=== PATIENT | female | born 1995 | race Caucasian/White ===

== ENCOUNTER 2017-03-15 11:51 | Emergency (ER) | payer SELFPAY ==
[2017-03-15 18:17] LABS: Bilirubin,Urine NEG (Negative); Blood,Urine LG (Negative); Ketones,Urine NEG (Negative); Leukocyte Esterase,Urine TR (Negative); Mucus,Urine 2+ /HPF; Nitrite,Urine NEG (Negative); Protein,Urine <15 mg/dL mg/dL (Negative); Urobilinogen,Urine < 2.0 mg/dL (<2.0)
--- NOTE | 2017-03-15 18:25 | Emergency Department Report ---
ED Female HPI - General Chief complaint: Urogenital-Female Stated complaint: POSS BV Source: patient Mode of arrival: Ambulatory Limitations: No Limitations - History of Present Illness Initial comments: 22 y/o F presents with abdominal cramps, fishy vaginal odor, mix of creamy and cottage cheese vaginal discharge for the past 1 week. LMP- currently on it. No hx of STD per patient. Pt admits to a hx of frequency UTI and BV in the past. Pt has been taking OTC azo with mild relief of the symptoms. Pt denies any vomiting, has been eating okay, no chest pain, SOB, fever, chills, or low back pain reported. Pt admits to more suprapubic pain at this time. MD Complaint: vaginal discharge, pelvic pain -: week(s) (one week) Radiation: non-radiating, other (more at the suprapubic region) Severity: moderate Severity scale (0 -10): 8 Quality: cramping Consistency: constant Improves with: other (AZO) Worsens with: none Are you Now?: No Last Menstrual Period: 03/12/17 EDC: 12/17/17 Associated Symptoms: vaginal discharge, abdominal pain, nausea/vomiting. denies : vaginal bleeding, fever/chills, headaches, loss of appetite, dysuria, hematuria - Related Data Sexually active: Yes Previous Rx's Medication Instructions Recorded Last Taken Type Nitrofurantoin Wirt/M-Cryst 100 mg PO Q12HR #10 capsule 03/15/17 Unknown Rx [Macrobid CAP] Phenazopyridine [Pyridium] 100 mg PO DAILY #12 tablet 03/15/17 Unknown Rx metroNIDAZOLE [Flagyl] 500 mg PO Q12HR #14 tab 03/15/17 Unknown Rx Allergies Allergy/AdvReac Type Severity Reaction Status Date / Time No Known Allergies Allergy Unverified 03/15/17 12:28 ED Review of Systems ROS: Stated complaint: POSS BV Other details as noted in HPI Constitutional: denies: chills, fever Eyes: denies: eye pain, eye discharge, vision change ENT: denies: ear pain, throat pain Respiratory: denies: cough, shortness of breath, wheezing Cardiovascular: denies: chest pain, palpitations Endocrine: no symptoms reported Gastrointestinal: abdominal pain, nausea Genitourinary: discharge, other (denies any frequency/urgency or urination but states that she has been taking AZO) Musculoskeletal: denies: back pain, joint swelling, arthralgia Skin: denies: rash, lesions Neurological: denies: headache, weakness, paresthesias Psychiatric: denies: anxiety, depression Hematological/Lymphatic: denies: easy bleeding, easy bruising ED Past Medical Hx - Past Medical History Previous Medical History?: No - Surgical History Past Surgical History?: No - Social History Smoking Status: Never Smoker Substance Use Type: None - Medications Home Medications: Home Medications Medication Instructions Recorded Confirmed Last Taken Type Nitrofurantoin Wirt/M-Cryst 100 mg PO Q12HR #10 capsule 03/15/17 Unknown Rx [Macrobid CAP] Phenazopyridine [Pyridium] 100 mg PO DAILY #12 tablet 03/15/17 Unknown Rx metroNIDAZOLE [Flagyl] 500 mg PO Q12HR #14 tab 03/15/17 Unknown Rx ED Physical Exam - General Limitations: No Limitations General appearance: alert - Head Head exam: Present: atraumatic, normocephalic - Eye Eye exam: Present: normal appearance - ENT ENT exam: Present: normal exam - Neck Neck exam: Present: normal inspection - GI/Abdominal GI/Abdominal exam: Present: soft, tenderness (more on the suprapubic region), normal bowel sounds - Speculum exam: Present: vaginal bleeding, other (as the patient was on her menstrual cycle there was mild amount of blood noted in the cervix/vagina area) Bi-manual exam: Present: normal bi-manual exam, other (no cervical motion tenderness---there was a plater production in the room with this examination) - Extremities Exam Extremities exam: Present: normal inspection - Back Exam Back exam: Present: normal inspection, full ROM, other (no LBP, no CVAT bilaterally) - Neurological Exam Neurological exam: Present: alert, oriented X3 - Psychiatric Psychiatric exam: Present: normal affect, normal mood - Skin Skin exam: Present: warm, dry, intact, normal color. Absent: rash ED Course Vital Signs 03/15/17 03/15/17 12:25 20:00 Temperature 97.9 F Pulse Rate 75 67 Respiratory 16 18 Rate Blood Pressure 127/78 Blood Pressure 114/64 [Left] O2 Sat by Pulse 99 100 Oximetry ED Medical Decision Making - Medical Decision Making Pt was complaining of foul vaginal odor and discharge. Pt had a hx of frequent UTI and BV. Wet prep, gc/chlamydia, and UA were obtained today. Pt was positive for BV and acute cystitis. Urine culture was sent out. Pt was treated with flagyl for the BV and macrobid with pyridium for the UTI. Pt was discharged in stable condition, alert and oriented, and in no acute resp distress. Follow-up referrals provided for OBGYN and PCP. Critical care attestation.: If time is entered above; I have spent that time in minutes in the direct care of this critically ill patient, excluding procedure time. ED Disposition Clinical Impression: Cystitis, Bacterial vaginosis Disposition: TO HOME OR SELFCARE Is pt being admited?: No Does the pt Need Aspirin: No Condition: Stable Instructions: Phenazopyridine (By mouth), Bacterial Vaginosis (ED), Urinary Tract Infection in Women (ED) Additional Instructions: Please avoid alcohol with Flagyl. Please take your medications as directed to you. Please follow-up with PCP within 3-5 days, a referral has been given to you today. OBGYN referral given to you today. Please return to the ER immediately with any continued or worsening symptoms. Prescriptions: metroNIDAZOLE [Flagyl] 500 mg PO Q12HR #14 tab Nitrofurantoin Wirt/M-Cryst [Macrobid CAP] 100 mg PO Q12HR #10 capsule Phenazopyridine [Pyridium] 100 mg PO DAILY #12 tablet Referrals: [facility] [place] [Outside] - 3-5 Days [facility] [Outside] - 3-5 Days CHARLETTE GARCIA MD [Referring] - 3-5 Days [facility], [Primary Care Provider] - 3-5 Days Forms: STI Treatment and Prevention, Work/School Release Form(ED)
[2017-03-15 21:06] VITALS: BP 114/64
== END 2017-03-15 20:00 | disposition home or self-care (01) ==
LOC: ED 11:51
DX: N76.0 Acute vaginitis (principal); N30.90 Cystitis, unspecified without hematuria
CPT/HCPCS: 81001; 81025; 87086; 87210; 87591; 99284